=== PATIENT | male | born 1965 | race African-American/Black ===

== ENCOUNTER 2017-03-17 09:53 | Emergency (ER) | payer MEDICAID ==
[~2017-03-17] VITALS: Ht 177.8 cm; Wt 100.0 kg
[2017-03-17 09:55] VITALS: BP 220/117
[2017-03-17] MEDS ORDERED: HYDRALAZINE 20MG/ML VIAL IV ONE (10:00)
== END 2017-03-17 10:17 | disposition left against medical advice (07) ==
LOC: ER 09:59
DX: G40.409 Other generalized epilepsy and epileptic syndromes, not intractable, without status epilepticus (principal); I16.9 Hypertensive crisis, unspecified; Z91.14 Patient's other noncompliance with medication regimen
CPT/HCPCS: 99283

== ENCOUNTER 2017-04-13 08:35 | Emergency (ER) | payer MEDICAID ==
[~2017-04-13] VITALS: Ht 182.9 cm; Wt 140.0 kg
[2017-04-13] MEDS ORDERED: SODIUM CHLORIDE 0.9% 1,000 ML IV ONE (08:47)
[2017-04-13 09:03] LABS: BASOPHILS % 1.1 % (0.0-2.0); EOSINOPHILS % 2.2 % (0.0-5.0); HEMATOCRIT. 36.5 % (42.0-52.0); HEMOGLOBIN. 11.9 g/dL (14.0-18.0); LYMPHOCYTES % 14.6 % (20.0-50.0); MEAN CORPUSCULAR HEMOGLOBIN 27.9 pg (28.0-32.0); MEAN CORPUSCULAR VOLUME 85.8 fL (80.0-94.0); MEAN PLATELET VOLUME 8.5 fl (7.4-10.4); MONOCYTES % 12.4 % (2.0-8.0); NEUTROPHILS % 69.7 % (40.0-76.0); PLATELET 240 x1000/uL (130-400); RED BLOOD CELL COUNT 4.26 mill/uL (4.7-6.1)
[2017-04-13] MEDS ORDERED: PHENYTOIN SODIUM 1,000 MG in SODIUM CHLORIDE 0.9% 100 ML IV ONE (09:15)
[2017-04-13 09:18] LABS: CARBON DIOXIDE 27 mEq/L (21-32); CHLORIDE 106 mEq/L (98-107); ETHANOL BLOOD < 10 mg/dL
[2017-04-13 09:20] LABS: PHENYTOIN < 0.4 ug/mL (10-20)
[2017-04-13 11:32] VITALS: BP 129/64
== END 2017-04-13 11:32 | disposition home or self-care (01) ==
LOC: ER 09:42
DX: G40.909 Epilepsy, unspecified, not intractable, without status epilepticus (principal); I10 Essential (primary) hypertension; S01.511A Laceration without foreign body of lip, initial encounter; E83.51 Hypocalcemia; D64.9 Anemia, unspecified; Z91.14 Patient's other noncompliance with medication regimen; Z59.0 Homelessness; W01.0XXA Fall on same level from slipping, tripping and stumbling without subsequent striking against object, initial encounter; Y93.89 Activity, other specified; Y92.89 Other specified places as the place of occurrence of the external cause
CPT/HCPCS: 36415; 70450; 80048; 80185; 85025; 96365; 99285; G0482; J1165; J7030; J7050

== ENCOUNTER 2017-05-02 10:39 | Emergency (ER) | payer MEDICAID ==
[~2017-05-02] VITALS: Ht 180.3 cm; Wt 120.0 kg
[2017-05-02] MEDS ORDERED: SODIUM CHLORIDE 0.9% 1,000 ML IV ONE (10:49)
[2017-05-02] MEDS ORDERED: PHENYTOIN SODIUM 1,000 MG in SODIUM CHLORIDE 0.9% 100 ML IV ONE ×2 (11:00→11:45)
[2017-05-02 11:02] LABS: BASOPHILS % 0.9 % (0.0-2.0); EOSINOPHILS % 0.5 % (0.0-5.0); HEMATOCRIT. 37.1 % (42.0-52.0); HEMOGLOBIN. 12.1 g/dL (14.0-18.0); LYMPHOCYTES % 8.5 % (20.0-50.0); MEAN CORPUSCULAR HEMOGLOBIN 27.7 pg (28.0-32.0); MEAN PLATELET VOLUME 8.9 fl (7.4-10.4); MONOCYTES % 10.8 % (2.0-8.0); NEUTROPHILS % 79.3 % (40.0-76.0); PLATELET 216 x1000/uL (130-400); RED BLOOD CELL COUNT 4.37 mill/uL (4.7-6.1); RED CELL DISTRIBUTION WIDTH 14.5 % (11.6-14.6)
[2017-05-02 11:10] LABS: PARTIAL THROMBOPLASTIN TIME 27.3 sec (24.0-34.0); PROTHROMBIN TIME 10.8 sec
[2017-05-02 11:15] LABS: CARBON DIOXIDE 29 mEq/L (21-32); CHLORIDE 103 mEq/L (98-107); ETHANOL BLOOD < 10 mg/dL
[2017-05-02 12:28] LABS: *AMPHETAMINES SCREEN URINE NEGATIVE (NEGATIVE); *BARBITURATES SCREEN URINE NEGATIVE (NEGATIVE); *BENZODIAZEPINES SCREEN URINE NEGATIVE (NEGATIVE); *COCAINE SCREEN URINE NEGATIVE (NEGATIVE); CANNABINOID URINE SCREEN NEGATIVE (NEGATIVE); METHADONE URINE SCREEN NEGATIVE (NEGATIVE); OPIATES URINE SCREEN NEGATIVE (NEGATIVE); PHENCYCLIDINE URINE SCREEN NEGATIVE (NEGATIVE)
[2017-05-02] MEDS ORDERED: ENALAPRIL 2.5MG/2ML VIAL 2ML IV ONE (12:45)
[2017-05-02 13:03] VITALS: BP 119/44
== END 2017-05-02 13:46 | disposition home or self-care (01) ==
LOC: ER 11:56
DX: S00.83XA Contusion of other part of head, initial encounter (principal); G40.909 Epilepsy, unspecified, not intractable, without status epilepticus; I10 Essential (primary) hypertension; Z91.19 Patient's noncompliance with other medical treatment and regimen; X58.XXXA Exposure to other specified factors, initial encounter; Y93.89 Activity, other specified; Y92.89 Other specified places as the place of occurrence of the external cause; Y99.8 Other external cause status
CPT/HCPCS: 36415; 70450; 80048; 80185; 80305; 83735; 85025; 85610; 85730; 96361; 96365; 96375; 99285; G0482; J1165; J3490; J7030; Z7610; J7050

== ENCOUNTER 2018-12-24 10:11 | Emergency (ER) | payer SELFPAY ==
[~2018-12-24] VITALS: Ht 188 cm; Wt 110.0 kg
[2018-12-24] MEDS ORDERED: CLONIDINE 0.2MG TABLET PO ONE (10:45)
[2018-12-24 10:54] LABS: BASOPHILS % 0.8 % (0.0-2.0); EOSINOPHILS % 1.7 % (0.0-5.0); HEMATOCRIT. 42.3 % (42.0-52.0); HEMOGLOBIN. 13.9 g/dL (14.0-18.0); LYMPHOCYTES % 20.8 % (20.0-50.0); MEAN CORPUSCULAR HEMOGLOBIN 28.1 pg (28.0-32.0); MEAN CORPUSCULAR VOLUME 85.7 fL (80.0-94.0); MEAN PLATELET VOLUME 8.9 fl (7.4-10.4); MONOCYTES % 11.5 % (2.0-8.0); NEUTROPHILS % 65.2 % (40.0-76.0); PLATELET 215 x1000/uL (130-400); RED BLOOD CELL COUNT 4.94 mill/uL (4.7-6.1); RED CELL DISTRIBUTION WIDTH 14.3 % (11.6-14.6)
[2018-12-24 11:00] LABS: CHLORIDE 110 mEq/L (98-107)
[2018-12-24 11:04] LABS: ETHANOL BLOOD < 10 mg/dL
[2018-12-24] MEDS ORDERED: PHENYTOIN SODIUM EXTENDED 100MG CAPSULE PO ONE (12:00)
[2018-12-24] MEDS ORDERED: HYDRALAZINE 20MG/ML VIAL IV ONE (12:15)
[2018-12-24 14:12] LABS: *AMPHETAMINES SCREEN URINE NEGATIVE (NEGATIVE); *BARBITURATES SCREEN URINE NEGATIVE (NEGATIVE); *BENZODIAZEPINES SCREEN URINE NEGATIVE (NEGATIVE); *COCAINE SCREEN URINE NEGATIVE (NEGATIVE); METHADONE URINE SCREEN NEGATIVE (NEGATIVE); OPIATES URINE SCREEN NEGATIVE (NEGATIVE)
[2018-12-24 14:13] LABS: CANNABINOID URINE SCREEN NEGATIVE (NEGATIVE); PHENCYCLIDINE URINE SCREEN NEGATIVE (NEGATIVE)
[2018-12-24 15:59] VITALS: BP 162/100
== END 2018-12-24 16:06 | disposition home or self-care (01) ==
LOC: ER 10:19
DX: R56.9 Unspecified convulsions (principal); I10 Essential (primary) hypertension; R78.89 Finding of other specified substances, not normally found in blood
CPT/HCPCS: 36415; 80053; 80185; 80305; 80320; 85025; 96374; 99283; J0360; G0480